=== PATIENT | female | born 1930 | race Caucasian/White ===

== ENCOUNTER 2019-05-09 21:22 | Inpatient (IN) | payer OTHER ==
[~2019-05-09] VITALS: Ht 162.6 cm; Wt 46.9 kg
[2019-05-09 21:24] VITALS: BP 106/47
[2019-05-09] MEDS ORDERED: PAIN & FEVER325 MG PO (21:53)
[2019-05-09] MEDS ORDERED: ACETAMINOPHEN PO (21:55)
[2019-05-09] MEDS ORDERED: LORCET 5-325 M1 EACH PO (21:56)
[2019-05-09] MEDS ORDERED: CHLORTHALIDONE25 MG PO (21:56)
[2019-05-09] MEDS ORDERED: CARDIZEM SR 60M60 MG PO (21:57)
[2019-05-09] MEDS ORDERED: VITAMIN D250 MCG PO (21:57)
[2019-05-09] MEDS ORDERED: NEURONTIN100 MG PO (21:58)
[2019-05-09] MEDS ORDERED: HEMORRHOIDAL OI RECTAL (22:00)
[2019-05-09] MEDS ORDERED: ZINC SULFATE220 MG PO (22:01)
[2019-05-09] MEDS ORDERED: SENNA PLUS TAB1 EACH PO (22:01)
[2019-05-09] MEDS ORDERED: ZOFRAN4 MG PO (22:02)
[2019-05-09 22:09] LABS: ABSOLUTE NEUTROPHILS 15.1 thou/uL (1.4-8.2); BASOPHILS 0.2 % (0.0-2.0); EOSINOPHILS 0.1 % (0.0-3.0); HEMATOCRIT 37.1 % (37.0-47.0); HEMOGLOBIN 12.6 gm/dL (12.0-15.0); LYMPHOCYTES 10.2 % (24.0-44.0); MCH 32.5 pg (26.0-34.0); MCHC 33.8 g/dL (28.0-37.0); MCV 96.1 fL (80.0-100.0); MONOCYTES 10.1 % (1.0-8.0); PLATELET COUNT 196 thou/uL (150-400); POLYS 79.4 % (36.0-66.0); RBC 3.87 mil/uL (4.20-5.00); RDW 13.1 % (10.5-14.5); WBC 19.1 thou/uL (4.0-11.0)
[2019-05-09 22:10] LABS: URINE BILIRUBIN NEGATIVE (Negative); URINE BLOOD TRACE (Negative); URINE CLARITY SL CLOUDY; URINE COLOR YELLOW; URINE GLUCOSE-RANDOM* NEGATIVE (Negative); URINE KETONES NEGATIVE (Negative); URINE LEUKOCYTES-REFLEX TRACE (Negative); URINE NITRITE-REFLEX NEGATIVE (Negative); URINE PROTEIN (DIPSTICK) NEGATIVE (Negative); URINE SPECIFIC GRAVITY >= 1.030 (1.005-1.035); URINE UROBILINOGEN 0.2 E.U./dl (0.2-1.0)
[2019-05-09 22:17] LABS: CALCIUM 8.9 mg/dL (8.5-10.1); CREATININE 1.7 mg/dL (0.6-1.0); POTASSIUM 3.3 mmol/L (3.5-5.1)
[2019-05-09 22:23] LABS: ALBUMIN 2.4 g/dL (3.4-5.0); DIRECT BILIRUBIN 0.1 mg/dL (<0.1-0.2); TOTAL BILIRUBIN 0.5 mg/dL (<0.1-1.0)
[2019-05-10] VITALS (7 sets, daily range): BP systolic 106–140; BP diastolic 50–78
--- NOTE | 2019-05-10 04:00 | NUR ---
RECEIVED REPORT FROM ER NURSE. PT ARRIVED FROM ER TO ROOM 36O AROUND 0045. ADMISSION HX AND ASSESSMENT COMPLETED CHARTED. PT WAS ABLE TO ANSWER MOST ORIENTATION QUESTIONS BUT MAKES CONFUSED STATEMENTS AT TIMES. DENIES ANY PAIN. SHE DOES ADMIT TO HAVING SOME SOA W/ EXERTION. O2 SATS STABLE ON RA. NON-PRODUCTIVE, CONGESTED COUGH NOTED. VSS. AFEBRILE SO FAR SINCE ADMISSION. PT HAS BEEN SLEEPING THE PAST FEW HOURS. RESPIRATIONS EVEN AND UNLABORED. IV ABX ADMINISTERED ORDERED. FALL PRECAUTIONS IN PLACE. PROGRESSING SLOWLY TOWARD POC GOALS. PT REMAINS IN ENHANCED ISOLATION DUE TO RULE OUT COVID-19. WILL CONTINUE TO MONITOR FURTHER.
--- NOTE | 2019-05-10 08:51 | EKG ---
[facility] [place] [address] ELECTROCARDIOGRAM REPORT Name: JENNIFER RUEDA Room #: 360-P ADM IN M.R.#: [id number] Admission: 05/09/19 Attend Phys: Enrrique Bazzi MD Discharge: Date of : [birth year] Report #: [id number] THIS REPORT FOR: cc: Enrrique Bazzi MD, Ramilo MD Lundgren,Hector Saab MD [facility] ~ THIS REPORT FOR: //name// [facility] ED Test Date: 2019-05-09 Test Time: 21:29:32 Pat Name: JENNIFER RUEDA Department: Room: 360 Gender: F Meat Packager: [facility] : 1930 Requested By: Alvarez Forrest Order Number: [id number] MD: Hetcor Frazier Measurements Intervals Sumner Rate: 59 P: -6 OK: 190 QRS: -49 QRSD: 111 T: 14 QT: 489 QTc: 485 Interpretive Statements Sinus bradycardia LAD, 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
--- NOTE | 2019-05-10 14:10 | NUR ---
INITIAL ASSESSMENT: PETR reviewed chart and spoke with nursing. Pt was admitted from [facility], due to sepsis/pneumonia. Pt had fever at [facility] prior to admission. Pt is in Enhanced Isolation to r/o COVID-19. PETR faxed clinical info to [facility] for review. No weekend discharge planned. PETR spoke with pt's son, Adair, via phone to provide update. Per Adair, pt has been at [facility] for about two months. Pt started out at [facility] and is now in LTC. Pt is mainly w/c bound, and is able to propel herself. Pt is able to ambulate short distances and transfer self in/out of bed. PETR confirmed plan is for pt to return to [facility] when medically stable. Pt's PCP is Dr. Bazzi, who sees her at the facility. PETR is following to assist as needed with discharge planning.
--- NOTE | 2019-05-10 16:31 | NUR ---
ASSUMED CARE APPROX 0700. THIS AM NO URINARY OUTPUT SINCE ER. WHILE ROUNDING DR. MONGE NOTIFIED. ORDERS GIVEN TO STRAIGHT CATH AND PLACE CARRION IF OUTPUT >200ML. RESIDUAL CATH WAS 450ML. WHILE CLEANING PT WITH BETADINE PRIOR TO STRAIGHT CATH, PT YELLED OUT IN PAIN. IT WAS NOTED THAT VAGINAL AREA WAS RED AND SWOLLEN. CARRION CATH WAS PLACED PER ORDERS. A FEW HOURS LATER, PT COMPLAINED OF VAGINAL PAIN WITH A PAIN RATING OF 10/10. PT REFUSED FOR THIS NURSE TO ASSESS VAGINAL AREA. CARRION CATHETER NOTED TO BE DRAINING. SHE REQUESTED PAIN MEDS. DR. MONGE PAGED @8044. DR. MONGE DID NOT PAGE BACK, BUT INPUTED ORDERS TO RESUME A FEW SELECT HOME MEDS INCLUDING PRN PAIN MEDICATION. ASSISTED PT TO SPEAK WITH SON, ABHISHEK, WHILE IN THE ROOM WITH HER. PT ENCOURAGED TO INCREASE WATER INTAKE FOR HYDRATION. STILL WAITING FOR COVID-19 TEST RESULTS. PT HAS YET TO PROGRESS TOWARDS PLAN OF CARE GOALS. WILL CONTINUE TO MONITOR.
--- NOTE | 2019-05-11 03:40 | NUR ---
ASSUMED PT CARE AROUND 191. AXOX2. INTERMITTENT CONFUSION NOTED. CARRION INTACT DRAINING YELLOW URINE. NO S/S ACUTE DISTRESS NOTED OR REPORTED AT THIS TIME. WILL CONT TO MOITOR FOR ANY CHANGES IN CONDITION.
[2019-05-11 04:24] VITALS: BP 127/73
[2019-05-11 06:55] LABS: HEMATOCRIT 33.9 % (37.0-47.0); HEMOGLOBIN 11.4 gm/dL (12.0-15.0); MCH 32.6 pg (26.0-34.0); MCHC 33.6 g/dL (28.0-37.0); MCV 97.1 fL (80.0-100.0); RBC 3.49 mil/uL (4.20-5.00); RDW 13.5 % (10.5-14.5)
[2019-05-11 07:08] LABS: CALCIUM 8.4 mg/dL (8.5-10.1); CREATININE 1.2 mg/dL (0.6-1.0); POTASSIUM 3.2 mmol/L (3.5-5.1)
[2019-05-11 08:23] VITALS: BP 154/82
[2019-05-11 16:40] VITALS: BP 156/88
--- NOTE | 2019-05-11 17:38 | NUR ---
ASSUMED CARE APPROX 0700. PT REMAINS ON ROOM AIR. NO COMPLAINTS OR PAIN. NO FEVERS THIS SHIFT. NO SHORTNESS OF AIR OR DISTRESS NOTED. PT HAS A DRY, NON-PRODUCTIVE COUGH. ADEQUATE OUTPUT IN CARRION CATH. DR. GREEN UPDATED ON PT'S CONDITION ON ROUNDING. MAINTENANCE FLUIDS INFUSING PER ORDERS. STILL WAITING FOR COVID-19 RESULTS. PT SLOWLY MOVING TOWARDS PLAN OF CARE GOALS. WILL CONTINUE TO MONITOR.
[2019-05-11 20:27] VITALS: BP 161/76
[2019-05-12 03:35] VITALS: BP 151/61
--- NOTE | 2019-05-12 03:40 | NUR ---
ASSUMED PT CARE AROUND 191. AXOX2. ELEVATED BP ADDRESSED ON PHONE. WILL EVALUATE IN AM. NNO. PT'S COVID19 TESTING CAME BACK NEGATIVE. PER PROTOCOL, PT WAS TRANFERRED TO . REPORT GIVEN TO MARÍA RAMIREZ. ALL BELONGINGS SENT WITH PT. PT WAS TRANSFERRED IN STABLE CONDITION.
--- NOTE | 2019-05-12 05:38 | NUR ---
PT TRANSFERRED FROM [facility] AT AROUND 0330, PT IS ALERT AND ORIENTEDX4 SOMETIMES FORGETFUL, DENIES PAIN OR SOB, DENIES CONCERNS AT THIS TIME, WILL CONTINUE TO MONITOR
[2019-05-12 07:08] LABS: CALCIUM 8.4 mg/dL (8.5-10.1); CREATININE 1.1 mg/dL (0.6-1.0); MAGNESIUM 1.9 mg/dL (1.8-2.4); POTASSIUM 3.4 mmol/L (3.5-5.1)
[2019-05-12 08:02] VITALS: BP 152/66
[2019-05-12 12:04] VITALS: BP 144/74
[2019-05-12 15:53] VITALS: BP 170/65
--- NOTE | 2019-05-12 16:18 | NUR ---
PT CARE ASSUMED APPROX 0700. ASSESSMENT CHARTED. DENIES PAIN AND SOA. VSS. TURNING Q2HRS AND PRN. TOLERATING POC. DENIES QUESTIONS OR CONCERNS. NO DISTRESS NOTED.
[2019-05-12 19:53] VITALS: BP 173/79
[2019-05-13 05:12] VITALS: BP 103/89
[2019-05-13 05:21] LABS: POTASSIUM 4.1 mmol/L (3.5-5.1)
--- NOTE | 2019-05-13 07:36 | NUR ---
ALERT.FORGETFUL.TURN Q2 HOURS AND NEEDED BUT REFUSES MOST OF THE TIME.PATIENT ALSO REFUSES POTASSIUM AT BEDTIME.CARRION TO DD.MONITOR SHOWS OPAL.POC CONTINUED.
[2019-05-13 08:00] VITALS: BP 169/73
[2019-05-13 08:20] VITALS: BP 169/73
[2019-05-13 11:05] VITALS: BP 142/80
--- NOTE | 2019-05-13 13:38 | NUR ---
ORDER PLACED FOR A ML FOR PT FOR VANCO/ZOSYN AND TO DC TO [facility] TOMORROW. CALLED RN TO CLARIFY WHAT ABX AND WHAT DATE PT TO DC. RN STATED SHE MAY NOT DC WITH VANCO AND WOULD KNOW MORE TOMORROW. PT CURRENTLY HAS 2 PIV'S THAT ARE WORKING. ML VS PICC PLACEMENT PENDING FOR TOMORROW AM. WILL LET NEXT VAT RN KNOW.
--- NOTE | 2019-05-13 14:16 | NUR ---
FAXED CLINICAL UPDATE TO [facility] SPOKE WITH ELIZABET IN ADM SHE RECEIVED UPDATE AND IF PT WILL NEED SKILLED STAY SHE WILL NEED AUTH. DP TO FOLLOW.
--- NOTE | 2019-05-13 15:30 | NUR ---
Sp with Dr Bazzi who reports plan for skilled care at [facility]. Updated Teresa in admissions at [facility]. DC party planner faxed pertinent information to [facility] to seek auth. [employer]em[employer] following.
[2019-05-13 16:06] VITALS: BP 121/75
--- NOTE | 2019-05-13 16:28 | NUR ---
ORIENTED TO SELF AND PLACE. GENERALLY ANXIOUS. ANTICIPATING RETURNING TO [facility] TOMORROW 05/13. SR/SB PER TELE. ASSISTED TO TRANSFER TO BEDSIDE CHAIR, PIVOTS WITH ASSIST. INCONTINENT OF LARGE, LIGHT BROWN, LIQUID STOOL THIS A.M. VANCO TROUGH 15. FALL PRECAUTIONS IN PLACE; WILL CONTINUE TO FOLLOW CLOSELY.
[2019-05-13 19:45] VITALS: BP 139/76
--- NOTE | 2019-05-14 03:40 | NUR ---
ASSUMED PT CARE AT AROUND 1900, PT IS AWAKE, A&0X4, SOMETIMES FORGETFUL, PT IS UP IN THE CHAIR, PUT IN IN BEDX1 ASSIST, ASSESSMENTS CHARTED, AFIB/SA ON THE MONITOR, DENIES SOB, COMPLAINED OF GENERALIZED PAIN, MEDICATED PRN WITH NO FURTHER COMP[LAINS, CONTINUES TO RECEIVE ANTIBIOTICS ORDERED, RESTING IN BED WITH NO DISTRESS NOTED, WILL CONTINUE TO MONITOR
[2019-05-14 04:25] VITALS: BP 146/96
[2019-05-14 07:57] VITALS: BP 150/80
[2019-05-14] MEDS ORDERED: ZOSYN 3.3753.375 GM IV (10:54)
[2019-05-14] MEDS ORDERED: VANCOMYCIN500 MG/VIA IV (10:58)
[2019-05-14] MEDS ORDERED: ACIDOPHILUS X-1 EACH PO (10:59)
[2019-05-14] MEDS ORDERED: HYDROCODON-ACE1 EAC7 PO (11:00)
--- NOTE | 2019-05-14 12:02 | NUR ---
VASCULAR ACCESS CONSULTED FOR PICC PLACEMENT FOR [facility]. PT'S LABS,MEDS,HISTORY,ORDER AND CONSENT VERIFIED. DISCUSSED BENEFITS AND RISK OF PICC WITH PT,VERBALIZED UNDERSTANDING. ANDREA PATTERSON WAS WIDELY PATENT WITH USG.4FR SL POWER PICC TRIMMED TO 40CM INSERTED TO 1CM EXTERNAL. STAT CXR ORDERED. WALLET CARD AND INFO PLACED IN PT'S TRANSFER PACKET. PT TOLERATED WELL
--- NOTE | 2019-05-14 12:28 | NUR ---
CXR CONFIRMED PLACEMENT IN LOWER SVC, PICC RELEASED FOR IMMEDIATE USE PER PROTOCOL TO LILIAN DANIEL
[2019-05-14 12:34] VITALS: BP 151/87
--- NOTE | 2019-05-14 12:43 | NUR ---
FAXED CLINICAL UPDATE TO [facility] SPOKE WITH JEFF SHE RECEIVED UPDATE.
--- NOTE | 2019-05-14 16:05 | NUR ---
spoke with Teresa at [facility] at this time no auth from insurance for skilled care. Dtr Jluis to chelle orders which will be done in am. Updated unit.
[2019-05-14 16:15] VITALS: BP 147/81
--- NOTE | 2019-05-14 16:40 | NUR ---
ASSUMED PT'S CARE AROUND 0710; PT. ON BED; RESTING WITH EYES CLOSED; EQUAL CHEST RISING NOTICED; AFIB ON THE MONITOR; DURING AM ASSESSMENT PT. AOX4; FORGETFUL; C/O PAIN OVER LEG; AM MEDICATION GIVEN; D/C CARRION AT 1000; MONITORING OUTPUT; PER DR. SALEEM ALEX TO INSERT PICC LINE; IV TEAM NOTIFIED; CONSENT SIGNED; HAD A BM DURING THE AFTERNOON; SOFT & FORM; SLOT OPERATIONS MANAGER WORKING ON D/C ORDERS; NOT ABLE TO D/C TODAY; 05/14/2019; PT. NOTIFIED; UP TO CHAIR WITH PT.; ASSESSMENT CHARGED; FOLLOWING POC; WILL PASS ON REPORT;
[2019-05-14 20:08] VITALS: BP 141/66
[2019-05-14 20:15] VITALS: BP 141/66
[2019-05-15 06:00] VITALS: BP 155/85
[2019-05-15 07:30] VITALS: BP 150/73
--- NOTE | 2019-05-15 07:31 | NUR ---
ASSUMED PT CARE AT 1900, PT IS A&OX4, GAUDENCIO, GEMMA ON THE MONITOR, ASSESSMENTS CHARTED, COMPLAINED OF PAIN ON THE LOWER EXTREMITIES, PAIN MEDICATION GIVEN WITH PARTIAL RELIEF, STABLE THROUGH THE NIGHT
--- NOTE | 2019-05-15 11:26 | NUR ---
Rec auth from insurance for post acute skilled care at [facility]. Sp with admissions at [facility]. WC van for 163. Requested chart copy. Notified RN and son of dc and timeframe. No further needs
[2019-05-15 11:30] VITALS: BP 146/79
--- NOTE | 2019-05-15 15:35 | NUR ---
RECEIVED PT'S CARE AROUND 07; PT. ON BED; RESTING WITH EYES CLOSED; SLEEP INTERRUMPTED DURING SHIFT CHANGE; AOX4; DURING AM ASSESSMENT C/O LEGS PAIN; ST. CHRONIC PAIN; AM MEDICATIONS GIVEN; PAIN RE-ASSESSMENT PT. RESTING WITH EYES CLOSED; ASKED WHEN MY SHE RETURNED TO FACILITY; NO UPDATE KNOWN DURING AM; HAD A BED BAD; INCONTINENT; AFIB ON THE MONITOR; PER TOP CUTTER SCHEDULED SHOE DRESSER AT 1600; PT. NOTIFIED; ST. UNDERSTANDING; CALLED REPORT TO KRISTINA; PT. GOING TO PICC [facility]; REPORT GIVEN TO MARÍA VEGA; ASSESSMENT CHARGED; FOLLOWED POC; WORKING ON D/C ORDERS;
== END 2019-05-15 16:00 | DRG 871 ==
LOC: ER 21:22 → 2N 23:28 → 3W 23:28 → EROBS 23:28 → 3W 05-10 00:33 → 2N 05-12 03:20
PROVIDERS: Emergency Medicine; Internal Medicine; ADMIT Internal Medicine
PROC: 02HV33Z Insertion of Infusion Device into Superior Vena Cava, Percutaneous Approach (ICD-10-PCS; principal; 2019-05-14)
DX: A41.9 Sepsis, unspecified organism (principal); J18.9 Pneumonia, unspecified organism; I48.21 Permanent atrial fibrillation; G89.4 Chronic pain syndrome; M47.9 Spondylosis, unspecified; E89.0 Postprocedural hypothyroidism; E86.0 Dehydration; E87.6 Hypokalemia; N76.0 Acute vaginitis; Z79.891 Long term (current) use of opiate analgesic; Z79.899 Other long term (current) drug therapy; Z88.8 Allergy status to other drugs, medicaments and biological substances; Z79.01 Long term (current) use of anticoagulants; Z98.1 Arthrodesis status; Z22.322 Carrier or suspected carrier of Methicillin resistant Staphylococcus aureus
CPT/HCPCS: 10081; 10879; 27000